=== PATIENT | male | born 1995 ===

== ENCOUNTER 2024-12-07 21:23 | Emergency (ER) | payer SELFPAY ==
[~2024-12-07] VITALS: Ht 182.9 cm; Wt 88.5 kg
[~2024-12-07 21:23] MED LIST: CEPH500 PO; HYDACE5 PO; ONDA4ODT MM; PRED10 PO; PROM25 PO; RXTRAM50 PO
[2024-12-07 23:45] VITALS: BP 126/81
[2024-12-08] MEDS ORDERED: Nitroglycerin 0.4 MG SUBL SL ONE (01:55)
[2024-12-08] MEDS ORDERED: Mag Hydrox/AL Hydrox/Simeth 30 ML UDC PO ONE (01:55)
[2024-12-08] MEDS ORDERED: Ondansetron HCl 2 MG / ML 2ML Vial IV ONE (02:35)
[2024-12-08] MEDS ORDERED: Glucagon 1 MG/KIT VIAL IV ONE (02:35)
[2024-12-08] MEDS ORDERED: NS 1,000 ML IV SCH (02:35)
[2024-12-08] MEDS ORDERED: Ketorolac Tromethamine 30mg Vial IV ONE (02:35)
[2024-12-08] MEDS ORDERED: Haloperidol Lactate Inj. 5 MG/ML Injection IV ONE (05:20)
[2024-12-08] MEDS ORDERED: OMEP20ER PO (05:35)
[2024-12-08] MEDS ORDERED: ALMACONE SUSPE355 ML PO (05:36)
== END 2024-12-08 05:57 | disposition other institution (70) ==
LOC: ER 21:23
DX: R11.2 Nausea with vomiting, unspecified (principal); Z59.89 Other problems related to housing and economic circumstances; Z79.1 Long term (current) use of non-steroidal anti-inflammatories (NSAID)
CPT/HCPCS: 71045; 96374; 96375; 99283-25; A9270; J1610; J1630; J1885; J2405; J7030

== ENCOUNTER 2025-08-22 07:33 | Emergency (ER) | payer SELFPAY ==
[2025-08-22] VITALS (7 sets, daily range): BP systolic 118–147; BP diastolic 80–94
[~2025-08-22] VITALS: Ht 177.8 cm; Wt 94.4 kg
[~2025-08-22 07:33] MED LIST changes: +ALMACONE SUSPE355 ML PO; +OMEP20ER PO
[2025-08-22] MEDS ORDERED: Glucagon 1 MG/KIT VIAL IV ONE (08:40)
[2025-08-22] MEDS ORDERED: Ondansetron HCl 2 MG / ML 2ML Vial IV ONE (08:40)
[2025-08-22] MEDS ORDERED: Glucagon, Human Recombinant 1 MG/Vial IV ONE (08:45)
[2025-08-22] MEDS ORDERED: ACET325 PO (12:57)
[2025-08-22] MEDS ORDERED: FentaNYL Citrate 50 MCG/ML 2 ML Injection ONE (13:01)
[2025-08-22] MEDS ORDERED: SuccINYLCHOLINE Chloride 100 MG/5 ML 5MLSYR ONE (13:02)
[2025-08-22] MEDS ORDERED: Dexamethasone Sod Phos 10 MG/ML 1ML VIAL ONE (13:02)
[2025-08-22] MEDS ORDERED: Ondansetron HCl 2 MG / ML 2ML Vial ONE (13:02)
--- NOTE | 2025-08-22 13:04 | NUR ---
PATIENT IN DAY SURGERY WITH , DENY, AT BEDSIDE. STATES SHE WILL DRIVE PATIENT HOME. PATIENT INFORMED NO DRIVING OR OPERATING MACHINERY FOR 24 HOURS AFTER ANESTHESIA. PATIENT STATES HE LAST ATE [facility] 1999 YESTERDAY. STATES HE HAS NOT BEEN ABLE TO SWALLOW ANYTHING SINCE THEN.
[2025-08-22] MEDS ORDERED: FentaNYL Citrate 50 MCG/ML 2 ML Injection IV PRN ×3 (13:15→13:20)
--- NOTE | 2025-08-22 13:17 | NUR ---
PATIENT GAVE [place] [employer] TO FOR SAFE KEEPING.
[2025-08-22] MEDS ORDERED: HYDROmorphone HCl/Pf 1MG SYR IV PRN (13:20)
[2025-08-22] MEDS ORDERED: Ondansetron HCl 2 MG / ML 2ML Vial IV PRN (13:20)
[2025-08-22] MEDS ORDERED: Labetalol HCL 5 MG/ML 4ML Injection (Single Dose) IV PRN (13:20)
--- NOTE | 2025-08-22 13:25 | NUR ---
08/22/25 1325 Alma Delia Salmeron History, Chart, Medications and Allergies reviewed before start of procedure.BITE BLOCK IN PRIOR TO START OF PROCEDURE. DR HOLLINGSWORTH PROVIDING ANESTHESIA
[2025-08-22] MEDS ORDERED: Ketorolac Tromethamine 30mg Vial ONE (13:46)
== END 2025-08-22 13:00 | disposition home or self-care (01) ==
LOC: ER 07:33
DX: T18.128A Food in esophagus causing other injury, initial encounter (principal); K20.0 Eosinophilic esophagitis; Z79.899 Other long term (current) drug therapy; W44.F3XA Food entering into or through a natural orifice, initial encounter
CPT/HCPCS: 71045; 88305; 88312; 96374-59; 96375-59; 99284-25; J0330; J1100; J1610; J1885; J2405; J2704; J3010; J7120

== ENCOUNTER 2025-08-23 08:45 | Emergency (ER) | payer SELFPAY ==
[~2025-08-23] VITALS: Ht 180.3 cm; Wt 76.2 kg
[~2025-08-23 08:45] MED LIST changes: +ACET325 PO
[2025-08-23 09:21] LABS: BASOPHILS ABSOLUTE AUTO 0.03 K/mm3 (0.00-0.23); BASOPHILS PERCENT AUTO 0 % (0-2); EOSINOPHILS ABSOLUTE AUTO 0.06 K/mm3 (0.00-0.68); EOSINOPHILS PERCENT AUTO 1 % (0-6); Hematocrit 46.6 % (37.0-53.0); Hemoglobin 16.4 g/dL (13.5-17.5); IMMATURE GRAN ABSOLUTE AUTO 0.05 K/mm3 (0.00-0.10); IMMATURE GRAN PERCENT AUTO 0 % (0-1); LYMPHOCYTES ABSOLUTE AUTO 2.78 K/mm3 (0.84-5.20); LYMPHOCYTES PERCENT AUTO 21 % (21-46); MONOCYTES ABSOLUTE AUTO 1.00 K/mm3 (0.16-1.47); MONOCYTES PERCENT AUTO 8 % (4-13); Mean Corpuscular HGB Conc 35.2 g/dL (31.5-36.5); Mean Corpuscular Volume 82 fL (80-100); NEUTROPHILS ABSOLUTE AUTO 9.28 K/mm3 (1.96-9.15); NEUTROPHILS PERCENT AUTO 70 % (41-73); NRBC ABSOLUTE 0.00 K/mm3 (0.00-0.02); NRBC Auto 0.0 /100 WBC (0.0-0.2); Platelet Count 282 K/mm3 (150-400); RDW Coefficient Variation 12.5 % (11.7-14.2); RDW Standard Deviation 37.6 fL (35.1-46.3)
[2025-08-23 09:41] LABS: Alanine Aminotransfer (ALT/SGP 71.0 U/L (12-78); Albumin, Blood 3.8 g/dL (3.4-5.0); Albumin/Globulin Ratio 1.0 (0.8-1.8); Anion Gap 12.0 mmol/L (3-11); Aspartate Aminotrans (AST/SGOT 71.0 U/L (12-37); Bilirubin, Total 0.9 mg/dL (0.1-1.0); Blood Urea Nitrogen 17.0 mg/dL (8-24); CO2, Blood 22.0 mmol/L (21-32); Calcium, Blood 9.0 mg/dL (8.5-10.1); Chloride, Blood 106.0 mmol/L (98-108); Creatinine, Blood 0.89 mg/dL (0.60-1.20); Globulin, Blood 3.8 g/dL (2.2-4.0); Glucose, Blood 103.0 mg/dL (70-99); Potassium, Blood 3.8 mmol/L (3.5-5.5); Sodium, Blood 136.0 mmol/L (136-145); Total Protein, Blood 7.6 g/dL (6.4-8.2)
[2025-08-23] MEDS ORDERED: Ketorolac Tromethamine 15mg Vial IV ONE (10:05)
[2025-08-23] MEDS ORDERED: Lidocaine 2% Viscous Soln 15 ML UDC PO ONE (10:05)
[2025-08-23 11:30] VITALS: BP 129/88
[2025-08-23] MEDS ORDERED: FentaNYL Citrate 50 MCG/ML 2 ML Injection IV ONE (11:45)
== END 2025-08-23 12:08 | disposition home or self-care (01) ==
LOC: ER 08:45
PROVIDERS: Emergency Medicine
DX: G89.18 Other acute postprocedural pain (principal); R07.89 Other chest pain; Z79.899 Other long term (current) drug therapy; Z59.89 Other problems related to housing and economic circumstances; Z98.890 Other specified postprocedural states
CPT/HCPCS: 71046; 74177; 80053; 83690; 84484; 85025; 85379; 93005; 93010; 96374-59; 96375; 99285-25; A9270; J1885; J3010; Q9967